=== PATIENT | female | born 1965 | race Caucasian/White ===

== ENCOUNTER → 2021-04-06 13:28 | Outpatient (CLI) | payer OTHER, SELFPAY ==
--- NOTE | 2021-04-06 14:00 | US_ITS ---
PROCEDURE: US TRANSVAGINAL CLINICAL INDICATION: Look at Endometrium Thickened endometrium follow-up seen on recent cancer screening ultrasound not available for comparison COMPARISON: No exams were available for comparison FINDINGS: Uterus is 7 x 5 x 5 cm. The endometrium measures approximately 10 mm and is homogeneous. The ovaries have an unremarkable appearance. No cul-de-sac fluid apparent. No pelvic mass apparent. IMPRESSION: The endometrium is mildly thickened at 10 mm. If there is postmenopausal bleeding then, this is a more worrisome value than if there is not postmenopausal bleeding.. Dictated by: Ramone Espinoza MD 04/07/2021 07:01 Ramone Espinoza MD in OV 04/07/2021 07:01
== END ==
PROVIDERS: PCP Physician Assistant; Visit Provider Nurse Practitioner Obstetrics & Gynecology
DX: R93.89 Abnormal findings on diagnostic imaging of other specified body structures (principal)
CPT/HCPCS: 76830